=== PATIENT | male | born 1980 | race Caucasian/White ===

== ENCOUNTER 2023-07-30 13:45 | Inpatient (IN) | payer OTHER ==
[2023-07-30 14:42] VITALS: BMI 29.8
[2023-07-30] MEDS ORDERED: POLYETHYLENE GLYCOL (HEALTHYLAX) 3350 17 GM PACKET PO PRN (16:57)
[2023-07-30] MEDS ORDERED: LOPERAMIDE HCL 2 MG CAPSULE PO PRN (16:57)
[2023-07-30] MEDS ORDERED: DICYCLOMINE HCL 10 MG CAPSULE PO PRN (16:57)
[2023-07-30] MEDS ORDERED: BENZOCAINE/MENTHOL (CHLORASEPTIC ) LOZENGE MM PRN (16:57)
[2023-07-30] MEDS ORDERED: MAG HYDROX/AL HYDROX/SIMETH 30 ML UNIT-DOSE CUP PO PRN (16:57)
[2023-07-30] MEDS ORDERED: NALOXONE HCL (KLOXXADO) 8 MG SPRAY NS PRN (16:57)
[2023-07-30] MEDS ORDERED: guaiFENesin 600 MG TABLET.ER (FP) PO PRN (16:57)
[2023-07-30] MEDS ORDERED: NALOXONE HCL 0.4 MG/ML VIAL IM PRN (16:57)
[2023-07-30] MEDS ORDERED: BENZONATATE 200 MG CAPSULE PO PRN (16:57)
[2023-07-30] MEDS ORDERED: BISMUTH SUBSALICYLATE 524 MG/30 ML PO PRN (16:57)
[2023-07-30] MEDS ORDERED: MAGNESIUM HYDROX 2400MG/30ML ORAL SUSPENSION 30 ML CUP PO PRN (16:57)
[2023-07-30] MEDS ORDERED: IBUPROFEN 400 MG TABLET (FP) PO PRN (16:57)
[2023-07-30] MEDS ORDERED: ONDANSETRON *ODT* 4 MG TABLET SL PRN (16:57)
[2023-07-30] MEDS ORDERED: diazePAM 5 MG TABLET ONE (17:20)
[2023-07-30] MEDS: diazePAM 5 MG TABLET PO SCH ×2 (17:37→22:30)
[2023-07-30] MEDS: hydrOXYzine PAMOATE 25 MG CAPSULE (FP) PO PRN (18:28)
[2023-07-30] MEDS: MELATONIN 5 MG TABLETS PO SCH (22:30)
[2023-07-30] MEDS: THIAMINE HCL 100 MG TABLET (FP) PO SCH (22:30)
[2023-07-30] MEDS: METHOCARBAMOL 500 MG TABLET PO PRN (22:30)
[2023-07-30] MEDS: NICOTINE POLACRILEX 2 MG GUM BUC PRN (22:35)
[2023-07-31] MEDS: diazePAM 5 MG TABLET PO SCH ×4 (05:42→22:07)
[2023-07-31] MEDS: IBUPROFEN 600 MG TABLET (FP) PO PRN (05:44)
[2023-07-31] MEDS: hydrOXYzine PAMOATE 25 MG CAPSULE (FP) PO PRN ×2 (05:44→14:40)
[2023-07-31] MEDS: NICOTINE POLACRILEX 2 MG GUM BUC PRN ×2 (06:09→17:30)
[2023-07-31] MEDS ORDERED: PATIENT'S OWN MEDICATION (NON-FORMULARY) (Meloxicam 15 MG Tablet) PO SCH (10:00)
[2023-07-31] MEDS: PRENATAL VITAMINS W/ FOLIC ACID TABLET (FP) PO SCH (10:05)
[2023-07-31] MEDS: cloNIDine HCL 0.1 MG TABLET PO PRN ×3 (10:08→22:08)
[2023-07-31] MEDS: diazePAM 5 MG TABLET PO PRN ×2 (12:13→19:20)
[2023-07-31] MEDS: NICOTINE 21 MG/24 HOURS TOPICAL PATCH TD SCH (15:42)
[2023-07-31] MEDS: ACETAMINOPHEN 325 MG TABLET (FP) PO PRN (19:20)
[2023-07-31] MEDS: MELATONIN 5 MG TABLETS PO SCH (22:07)
[2023-07-31] MEDS: METHOCARBAMOL 500 MG TABLET PO PRN (22:07)
[2023-07-31] MEDS: THIAMINE HCL 100 MG TABLET (FP) PO SCH (22:07)
[2023-07-31] MEDS: hydrOXYzine PAMOATE 50 MG CAPSULE (FP) PO PRN (22:07)
[2023-08-01] MEDS: diazePAM 5 MG TABLET PO SCH ×3 (06:11→22:05)
[2023-08-01] MEDS: IBUPROFEN 600 MG TABLET (FP) PO PRN ×2 (07:47→15:45)
[2023-08-01] MEDS: METHOCARBAMOL 500 MG TABLET PO PRN ×3 (07:47→22:04)
[2023-08-01] MEDS: hydrOXYzine PAMOATE 50 MG CAPSULE (FP) PO PRN ×3 (07:50→22:03)
[2023-08-01] MEDS: FLUoxetine HCL 20 MG CAPSULE PO SCH (10:09)
[2023-08-01] MEDS: PRENATAL VITAMINS W/ FOLIC ACID TABLET (FP) PO SCH (10:09)
[2023-08-01] MEDS: diazePAM 5 MG TABLET PO PRN ×2 (10:11→17:18)
[2023-08-01] MEDS: cloNIDine HCL 0.1 MG TABLET PO PRN ×2 (10:11→14:30)
[2023-08-01] MEDS: ACETAMINOPHEN 325 MG TABLET (FP) PO PRN ×2 (10:11→17:20)
[2023-08-01] MEDS: NICOTINE 21 MG/24 HOURS TOPICAL PATCH TD SCH (10:13)
[2023-08-01] MEDS: NICOTINE POLACRILEX 2 MG GUM BUC PRN (10:14)
[2023-08-01] MEDS: NICOTINE POLACRILEX 4 MG GUM BUC PRN ×4 (13:32→20:37)
[2023-08-01 15:32] LABS: HEMATOCRIT 39.4 % (35.4-49); HEMOGLOBIN 13.6 GM/dL (11.7-16.9); MCH 28.8 pg (25.7-33.7); MCHC 34.6 g/dl (32.0-35.9); MEAN CELL VOLUME 83.3 fl (80-96); MEAN PLT VOLUME 7.2 fl (7.5-11.1); PLATELET COUNT 237 10^3/uL (134-434); RBC 4.74 M/mm3 (4.00-5.60); RDW 13.2 % (11.9-15.9); WHITE BLOOD COUNT 8.7 K/mm3 (4.0-10.0)
[2023-08-01 15:34] LABS: CHLORIDE 106 mmol/L (98-107); POTASSIUM 4.2 mmol/L (3.5-5.1); SODIUM 135 mmol/L (136-145)
[2023-08-01 15:37] LABS: ALBUMIN 3.8 g/dl (3.4-5.0); ANION GAP 1 mmol/L (4-13); BLOOD UREA NITROGEN 15.1 mg/dL (7-18); CALCIUM 9.4 mg/dL (8.5-10.1); CO2 28 mmol/L (21-32); GLUCOSE,RANDOM 102 mg/dL (74-106)
[2023-08-01 15:40] LABS: CREATININE 1.1 mg/dL (0.55-1.3); SGPT/ALT 36 U/L (13-61)
[2023-08-01 15:41] LABS: SGOT/AST 22 U/L (15-37)
[2023-08-01 15:42] LABS: BILIRUBIN,TOTAL 0.3 mg/dL (0.2-1); TOT PROT 6.5 g/dl (6.4-8.2)
[2023-08-01 15:43] LABS: ALK PHOS 80 U/L (45-117)
[2023-08-01] MEDS: GABAPENTIN 100 MG CAPSULE PO SCH (22:03)
[2023-08-01] MEDS: THIAMINE HCL 100 MG TABLET (FP) PO SCH (22:03)
[2023-08-01] MEDS: MELATONIN 5 MG TABLETS PO SCH (22:03)
[2023-08-02] MEDS: diazePAM 5 MG TABLET PO SCH ×2 (05:56→17:32)
[2023-08-02] MEDS: GABAPENTIN 100 MG CAPSULE PO SCH ×3 (05:56→22:44)
[2023-08-02] MEDS: hydrOXYzine PAMOATE 50 MG CAPSULE (FP) PO PRN ×3 (05:58→22:43)
[2023-08-02] MEDS: ACETAMINOPHEN 325 MG TABLET (FP) PO PRN (05:59)
[2023-08-02] MEDS: NICOTINE POLACRILEX 4 MG GUM BUC PRN ×4 (06:01→15:08)
[2023-08-02] MEDS: METHOCARBAMOL 500 MG TABLET PO PRN ×3 (07:23→22:43)
[2023-08-02] MEDS: diazePAM 5 MG TABLET PO PRN ×2 (07:24→11:36)
[2023-08-02] MEDS: FLUoxetine HCL 20 MG CAPSULE PO SCH (10:24)
[2023-08-02] MEDS: PRENATAL VITAMINS W/ FOLIC ACID TABLET (FP) PO SCH (10:24)
[2023-08-02] MEDS: IBUPROFEN 600 MG TABLET (FP) PO PRN (10:24)
[2023-08-02] MEDS: NICOTINE 21 MG/24 HOURS TOPICAL PATCH TD SCH (10:24)
[2023-08-02] MEDS: cloNIDine HCL 0.1 MG TABLET PO PRN ×2 (11:37→22:44)
[2023-08-02 20:48] VITALS: TEMP 97.7
[2023-08-02] MEDS: MELATONIN 5 MG TABLETS PO SCH (22:42)
[2023-08-02] MEDS: THIAMINE HCL 100 MG TABLET (FP) PO SCH (22:42)
[2023-08-03] MEDS: GABAPENTIN 100 MG CAPSULE PO SCH (05:22)
[2023-08-03] MEDS: hydrOXYzine PAMOATE 50 MG CAPSULE (FP) PO PRN ×2 (05:25→11:25)
[2023-08-03] MEDS: METHOCARBAMOL 500 MG TABLET PO PRN ×2 (05:25→11:25)
[2023-08-03] MEDS ORDERED: diazePAM 5 MG TABLET PO ONE (06:00)
[2023-08-03] MEDS: cloNIDine HCL 0.1 MG TABLET PO PRN (06:36)
[2023-08-03] MEDS: ACETAMINOPHEN 325 MG TABLET (FP) PO PRN (06:39)
[2023-08-03 09:44] VITALS: BP 97/59; PULSE 67; RESP 18
[2023-08-03] MEDS: FLUoxetine HCL 20 MG CAPSULE PO SCH ×2 (11:11→11:18)
[2023-08-03] MEDS: NICOTINE 21 MG/24 HOURS TOPICAL PATCH TD SCH ×2 (11:11→11:20)
[2023-08-03] MEDS: PRENATAL VITAMINS W/ FOLIC ACID TABLET (FP) PO SCH ×2 (11:11→11:18)
[2023-08-03] MEDS: IBUPROFEN 600 MG TABLET (FP) PO PRN (11:18)
== END 2023-08-03 12:00 | disposition other institution (70) | DRG 774 ==
LOC: YASAS 13:45 → Y3N 17:26
PROVIDERS: ADMIT Allergy & Immunology; ATTEND Surgery
PROC: HZ2ZZZZ Detoxification Services for Substance Abuse Treatment (ICD-10-PCS; principal; 2023-07-30)
DX: F10.230 Alcohol dependence with withdrawal, uncomplicated (principal); F14.20 Cocaine dependence, uncomplicated; F12.20 Cannabis dependence, uncomplicated; F17.210 Nicotine dependence, cigarettes, uncomplicated; F31.9 Bipolar disorder, unspecified; F19.24 Other psychoactive substance dependence with psychoactive substance-induced mood disorder; F41.9 Anxiety disorder, unspecified; G40.909 Epilepsy, unspecified, not intractable, without status epilepticus; I10 Essential (primary) hypertension; K21.9 Gastro-esophageal reflux disease without esophagitis; M54.50 Low back pain, unspecified; G89.29 Other chronic pain; Z28.310 Unvaccinated for COVID-19; Z28.9 Immunization not carried out for unspecified reason; Z56.0 Unemployment, unspecified; Z59.00 Homelessness unspecified
CPT/HCPCS: 36415; 80053; 80307; 85027; 86780; 87635; 93005; 93010